=== PATIENT | male | born 1995 | race Hispanic/Latino ===

== ENCOUNTER 2021-11-06 19:24 | Emergency (ER) | payer BC ==
[~2021-11-06] VITALS: Ht 167.6 cm; Wt 78.5 kg
[2021-11-06] MEDS ORDERED: KETOROLAC TROMETHAMINE 30 MG/ML VIAL IV STA (20:11)
[2021-11-06] MEDS ORDERED: ACETAMINOPHEN 325 MG TAB PO ONE (20:15)
[2021-11-06] MEDS ORDERED: METOCLOPRAMIDE HCL 10 MG/2ML VIAL IV ONE (20:15)
[2021-11-06] MEDS ORDERED: SODIUM CHLORIDE 0.9% 1000ML 1,000 ML IV ONE (20:15)
[2021-11-06] MEDS ORDERED: SODIUM CHLORIDE 0.9% 1000ML 1,000 ML ONE (20:29)
[2021-11-06] MEDS ORDERED: METOCLOPRAMIDE HCL 10 MG/2ML VIAL ONE (20:29)
[2021-11-06] MEDS ORDERED: KETOROLAC TROMETHAMINE 30 MG/ML VIAL ONE (20:29)
[2021-11-06] MEDS ORDERED: ACETAMINOPHEN 325 MG TAB ONE (20:29)
[2021-11-06] MEDS ORDERED: IBUPROFEN600 MG PO (21:59)
== END 2021-11-06 22:25 | disposition home or self-care (01) ==
LOC: FSED 20:12
DX: J10.1 Influenza due to other identified influenza virus with other respiratory manifestations (principal); Z20.822 Contact with and (suspected) exposure to COVID-19
CPT/HCPCS: 80053; 85025; 99283; J1885; J2765; J7030; U0002